=== PATIENT | female | born 1935 | race Asian ===

== ENCOUNTER 2019-04-01 12:36 | Emergency (ER) | payer MEDICARE, MEDICAID ==
[~2019-04-01] VITALS: Ht 162.6 cm; Wt 43.1 kg
[2019-04-01 12:45] VITALS: BP 209/74
--- NOTE | 2019-04-01 12:48 | Emergency Room Report ---
History of Present Illness General Chief Complaint: Pain Source: Patient, Family Member, EMS Present Illness HPI Disclaimer: Please note that this report is being documented using DRAGON technology. This can lead to erroneous entry secondary to incorrect interpretation by the dictating instrument. HPI: 84-year-old female with a history of hypertension presents for evaluation of right knee pain. According to the daughter who is the patient's primary research director and current media liaison officer for she had a witnessed fall from standing approximately 2 days ago while getting ready to get into the car. She fell on the right knee and noted immediate pain however the pain quickly went away. Reportedly she was able to bear some weight the first day however the past 2 days she has had progressive pain and swelling. Is no longer able to bend the right knee. Still able to move the ankle and toes. Reports good color and denies paresthesias. Does not take anticoagulants. There is no head injury, loss of consciousness or other injury sustained in her fall. PMH: Hypertension PSH: None reported Allergies: None reported Social Hx: None reported Allergies: Coded Allergies: No Known Allergies (Unverified , 04/01/19) Nursing Documentation-PMH Hx Hypertension: Yes Review of Systems All Other Systems: negative except mentioned in HPI Physical Exam Vital Signs Date Time Temp Pulse Resp B/P (MAP) Pulse Ox O2 Delivery O2 Flow Rate FiO2 04/01/19 12:32 98.1 90 12 194/89 (124) 99 Room Air General: Awake and alert, no acute distress HEENT: NC/AT. EOMI. Cardiovascular: RRR. S1 and S2 normal. No murmur appreciated Resp: Normal work of breathing. No cough, wheezing or crackles appreciated Abdomen: Abdomen is soft, nondistended. Nontender Skin: Intact. No abrasions, laceration or rash over the exposed skin MSK: There is tenderness over the patella and the right knee circumferentially with moderate edema and a small palpable deformity in the posterior fossa. No pulsatile mass appreciated. Preserved 2+ PT and DP pulses. Capillary refill neck less than 2 seconds. Neuro: Awake and alert. Mentating appropriately. Sensation is intact to light touch over the dermatomes of the lower extremities. Medical Decision Making Diagnostic Impression: Primary Impression: Hypokalemia Additional Impressions: Knee effusion, right Knee contusion ER Course 84-year-old female presents for evaluation of right knee pain with small deformity after a ground-level fall 2 days ago. Concern for dislocation or significant fracture at this time though deformity may be chronic. Will obtain an x-ray and then advanced imaging as needed. Will provide pain medication and preop labs will be sent. Laboratory Tests Test 04/01/19 13:00 White Blood Count 6.9 K/UL (4.8-10.8) Red Blood Count 4.36 M/UL (4.20-5.40) Hemoglobin 13.4 G/DL (12.0-16.0) Hematocrit 40.4 % (37.0-47.0) Mean Corpuscular Volume 93 FL (80-99) Mean Corpuscular Hemoglobin 30.8 PG (27.0-31.0) Mean Corpuscular Hemoglobin Concent 33.2 G/DL (32.0-36.0) Red Cell Distribution Width 11.2 % (11.6-14.8) L Platelet Count 191 K/UL (150-450) Mean Platelet Volume 6.6 FL (6.5-10.1) Neutrophils (%) (Auto) 77.9 % (45.0-75.0) H Lymphocytes (%) (Auto) 10.6 % (20.0-45.0) L Monocytes (%) (Auto) 10.8 % (1.0-10.0) H Eosinophils (%) (Auto) 0.2 % (0.0-3.0) Basophils (%) (Auto) 0.5 % (0.0-2.0) Prothrombin Time 9.9 SEC (9.30-11.50) Prothrombin Time INR 0.9 (0.9-1.1) Sodium Level 139 MMOL/L (136-145) Potassium Level 3.2 MMOL/L (3.5-5.1) L Chloride Level 103 MMOL/L (98-107) Carbon Dioxide Level 26 MMOL/L (21-32) Anion Gap 10 mmol/L (5-15) Blood Urea Nitrogen 18 mg/dL (7-18) Creatinine 0.9 MG/DL (0.55-1.30) Estimate Glomerular Filtration Rate mL/min (>60) Glucose Level 146 MG/DL (74-106) H Calcium Level 9.5 MG/DL (8.5-10.1) Other X-Ray Diagnostic Results Other X-Ray Diagnostic Results : X-Ray ordered: Right knee # of Views/Limited Vs Complete: 3 View Indication: Pain EP Interpretation: Yes Interpretation: no dislocation, no fractures, other - Soft tissue swelling present, no obvious fracture Impression: Other - No obvious fracture, degenerative changes present Electronically Signed by: Electronically signed by Dr. Juan Diego Mccoy Reevaluation Time: 14:28 Last Vital Signs Date Time Temp Pulse Resp B/P (MAP) Pulse Ox O2 Delivery O2 Flow Rate FiO2 04/01/19 12:32 98.1 90 12 194/89 (124) 99 Room Air Reevaluation Impression No evidence of fracture dislocation on x-ray. The patient has preserved distal perfusion; no evidence of vascular injury. May be a significant confusion or a possible subtle fracture that cannot be appreciated on x-ray. In such case, the treatment be immobilization regardless and the patient will be placed in a knee immobilizer and given a walker to take home. She is to follow-up with her PMD and orthopedic surgery for repeat imaging or more advanced imaging if her symptoms fail to improve. She was treated for slightly low potassium with oral repletion. She is to have her levels rechecked within a week by her PMD as well. Discussed reasons to return to the emergency department with family. They understand agree with this treatment plan. Disposition: HOME, SELF-CARE Condition: Stable Scripts Hydrocodone Bit/Acetaminophen 5-325* (NORCO 5-325*) 1 Each Tablet 1 TAB ORAL Q6H PRN for For Pain, #10 TAB 0 Refills Prov: Juan Diego Mccoy MD 04/01/19 Acetaminophen* (ACETAMINOPHEN 325MG TABLET*) 325 Mg Tablet 650 MG ORAL Q6H PRN for For Pain for 10 Days, #40 TAB Prov: Juan Diego Mccoy MD 04/01/19 Ibuprofen* (MOTRIN*) 600 Mg Tablet 600 MG ORAL Q8H PRN for For Pain, #30 TAB 0 Refills Prov: Juan Diego Mccoy MD 04/01/19 Juan Diego Mccoy MD Apr 01, 2019 12:48
[2019-04-01] MEDS ORDERED: Morphine Sulfate 2mg/ml Inj(IV/IM USE ONLY) IVP ONE (13:00)
[2019-04-01 13:12] LABS: BASOPHILS % (AUTO) 0.5 % (0.0-2.0); EOSINOPHILS % (AUTO) 0.2 % (0.0-3.0); HEMATOCRIT 40.4 % (37.0-47.0); HEMOGLOBIN 13.4 G/DL (12.0-16.0); LYMPHOCYTES % (AUTO) 10.6 % (20.0-45.0); MEAN CORPUSCULAR VOLUME 93 FL (80-99); MONOCYTES % (AUTO) 10.8 % (1.0-10.0); NEUTROPHILS % (AUTO) 77.9 % (45.0-75.0); PLATELET COUNT 191 K/UL (150-450); RED BLOOD COUNT 4.36 M/UL (4.20-5.40); RED CELL DISTRIBUTION WIDTH 11.2 % (11.6-14.8); WHITE BLOOD COUNT 6.9 K/UL (4.8-10.8)
[2019-04-01 13:20] LABS: INR 0.9 (0.9-1.1)
[2019-04-01 13:21] LABS: ANION GAP 10 mmol/L (5-15); BLOOD UREA NITROGEN 18 mg/dL (7-18); CALCIUM 9.5 MG/DL (8.5-10.1); CARBON DIOXIDE 26 MMOL/L (21-32); CHLORIDE 103 MMOL/L (98-107); CREATININE 0.9 MG/DL (0.55-1.30); POTASSIUM 3.2 MMOL/L (3.5-5.1); SODIUM 139 MMOL/L (136-145)
[2019-04-01 14:04] VITALS: BP 179/65
--- NOTE | 2019-04-01 14:22 | Diagnostic Imaging Report ---
Indication: Right knee pain, trauma Technique: 3 views of the right knee Comparison: None Findings: No acute fractures. No dislocations. There is degenerative narrowing of the medial joint compartment. There is medial and lateral osteophytes. There is degenerative remodeling of the medial and lateral tibial plateaus and of the medial femoral condyle. There is suggestion of a small suprapatellar effusion. Impression: Degenerative changes Suspect effusion No acute bony trauma
[2019-04-01] MEDS ORDERED: IBUPROFEN600 MG ORAL (14:34)
[2019-04-01] MEDS ORDERED: ACETAMINOPHEN325 M1 ORAL (14:34)
[2019-04-01] MEDS ORDERED: NORCO 5-325 TA1 EACH ORAL (14:38)
[2019-04-01 14:50] VITALS: BP 179/65
== END 2019-04-01 15:00 | disposition home or self-care (01) ==
LOC: EDBD 12:36 → EMR 13:12
DX: S80.01XA Contusion of right knee, initial encounter (principal); M25.461 Effusion, right knee; E87.6 Hypokalemia; I10 Essential (primary) hypertension; W01.0XXA Fall on same level from slipping, tripping and stumbling without subsequent striking against object, initial encounter; Y93.89 Activity, other specified; Y92.9 Unspecified place or not applicable
CPT/HCPCS: 36415; 73562; 80048; 85025; 85610; 96374; 99284; J2270; J8499